=== PATIENT | female | born 1985 ===

== ENCOUNTER 2021-07-28 08:59 | Outpatient (REF) | payer OTHER, SELFPAY | END 2021-07-28 09:00 | disposition home or self-care (01) | LOC: HO.LAB 08:59 | PROVIDERS: Visit Provider Internal Medicine | DX: Z20.822 Contact with and (suspected) exposure to COVID-19 (principal) | CPT/HCPCS: C9803; U0003; U0005 ==

== ENCOUNTER 2023-02-20 14:20 | Emergency (ER) | payer MEDICAID, SELFPAY ==
[2023-02-20 15:22] VITALS: BP 128/60; PULSE 69; RESP 18; TEMP 36.9; O2SAT 100
--- NOTE | 2023-02-20 15:25 | ED.GENADULT ---
HPI - General Adult General Chief complaint: General Medical Stated complaint: Dizziness/Abd pain Time Seen by Provider: 02/20/23 17:42 Source: patient, RN notes reviewed and old records reviewed Mode of arrival: ambulatory Limitations: no limitations History of Present Illness HPI narrative: 37-year-old female presents for evaluation of lower abdominal pain, vomiting, dizziness Patient reports that for the last 2 days she has had increasing dizziness with for certain this work yesterday. She states that she was vomiting all last night and today He reports a history of but no other abdominal surgeries Patient denies any fevers, chills, cough, shortness of breath She has some lower abdominal discomfort which she rates as a 4/10 Denies any vaginal bleeding or discharge. The patient states that she is not sexually active Related Data Previous Rx's Medication Instructions Recorded ondansetron 4 mg disintegrating 4 mg PO Q8H PRN nausea and 02/20/23 tablet vomiting #20 tabs Allergies Allergy/AdvReac Type Severity Reaction Status Date / Time No Known Allergies Allergy Verified 02/20/23 15:22 Review of Systems Constitutional: Constitutional: Reports as per HPI, Denies chills, Denies fatigue, Denies fever(s) and Denies headache(s) ENT: Denies headache(s) Cardiovascular: Cardiovascular: Denies chest pain and Denies dyspnea Respiratory: Respiratory: Denies cough and Denies dyspnea Gastrointestinal: Gastrointestinal: Reports abdominal pain, Denies constipation, Reports nausea and Reports vomiting Genitourinary: Genitourinary: Denies dysuria Neurologic: Denies headache(s) and Denies focal weakness Endocrine: Endocrine: Denies fatigue PMFSH Social History Social History Advance Directives: No Advance Directives Information Provided: No Physical Exam ED Vital Signs: Vital Signs - 24 hr 02/20/23 15:22 02/20/23 18:00 Temperature 98.4 F 98.1 F Pulse Rate 69 59 Respiratory Rate 18 16 Blood Pressure 128/60 125/67 Pulse Oximetry 100 96 Oxygen Delivery Method Room Air Room Air BMI result Body Mass Index 30.0 Const General: healthy appearing, comfortable, no acute distress, alert and awake Nutritional Appearance: well nourished Orientation/consciousness: patient oriented x3 HENMT Head: Yes normocephalic and Yes atraumatic Throat: Yes posterior oropharynx normal Eyes Eyelids: Yes eyelids normal Conjunctivae: conjunctivae normal Sclerae: sclerae normal Corneas: corneas normal Pupils: Equal, round and reactive pupils present EOM: EOMs intact bilaterally Neck Neck: Yes full ROM Resp Effort & Inspection: normal respiratory effort, able to speak in complete sentences, no audible wheezes and not labored Auscultation: clear to auscultation bilaterally Cardio Rate: regular rate Rhythm: regular rhythm GI Inspection: No distended Palpation (GI): Soft to palpation, not firm, Tenderness to palpation present (GI) suprapubicly (Without guarding or rebound), no guarding and not rigid Auscultation: normoactive bowel sounds Skin General skin exam: no rashes or lesions noted and elasticity normal Neuro General: patient oriented x3 Cranial nerves: Yes Equal, round and reactive pupils present and Yes Bilaterally intact EOM present Cognition (Neuro): normal cognition Extrem Other: Moving all extremities well without any obvious deformities Course Course Course Narrative: RME: 37 yold female presents to the ED for lower abdominal pain, headache, dizziness, nuasea, and vomitting. pmh of molar . labs and UA ordered. SARS ordered Reevaluation(s) Reevaluation #1: PATIENT REPORTS FEELING MUCH BETTER, SYMPTOMS HAVE RESOLVED, SHE IS STABLE FOR DISCHARGE Time: 20:11 Medications Administered Discontinued Medications Generic Name Dose Route Start Last Admin Trade Name Freq PRN Reason Stop Dose Admin Sodium Chloride 1,000 mls @ 999 mls/hr 02/20/23 18:00 02/20/23 19:11 Ns IV 02/20/23 19:00 Infused .Q1H1M DARRELL Infusion Ketorolac Tromethamine 30 mg 02/20/23 17:48 02/20/23 18:15 Ketorolac Tromethamine 30 Mg/Ml Vial IVPUSH 02/20/23 17:49 30 mg ONCE ONE Administration Meclizine HCl 25 mg 02/20/23 17:48 02/20/23 18:15 Meclizine Hcl 25 Mg Tablet PO 02/20/23 17:49 25 mg ONCE ONE Administration Ondansetron HCl 4 mg 02/20/23 17:48 02/20/23 18:15 Ondansetron Hcl 4 Mg/2 Ml Vial IVPUSH 02/20/23 17:49 4 mg ONCE ONE Administration Medical Decision Making Medical Decision Making MDM Narrative: 37-year-old healthy female presents for evaluation of lower abdominal pain, vomiting. She also complains of dizziness. Will check orthostatics will treat with IV fluids, Toradol, meclizine and Zofran. Her CBCs reassuring, UA is negative and the patient is not . Her abdomen exam is reassuring, she has minimal tenderness without guarding. Will hold off on imaging at this time. Differential Diagnosis Gastritis UTI Viral syndrome Gastroenteritis Lab Data MDM Lab Attestation statement: I reviewed the patient's lab results. 02/20/23 17:29 02/20/23 17:30 Labs: Lab Results 02/20/23 02/20/23 02/20/23 Range/Units 15:37 17:29 17:29 WBC 5.7 (4.8-10.8) X10*3/uL RBC 4.83 (4.20-5.50) X10*6/uL Hgb 12.3 (12.0-16.0) g/dl Hct 39.4 (37.0-47.0) % MCV 81.6 (80.0-98.0) fL MCH 25.5 L (27.0-33.0) pg MCHC 31.2 (31.0-35.0) g/dl RDW 14.6 (11.0-16.0) % Plt Count 354 (160-400) X10*3/uL MPV 10.1 (9.4-12.3) fL Immature Gran % (Auto) 0.4 (0.0-0.4) % Neut % (Auto) 47.6 (45-73) % Lymph % (Auto) 36.1 (20-40) % [place] % (Auto) 11.8 H (2-11) % Eos % (Auto) 3.7 (0-4) % Baso % (Auto) 0.4 (0-2) % Lymph # (Auto) 2.1 (1.2-4.9) X10*3/uL [place] # (Auto) 0.7 (0.1-1.2) X10*3/uL Eos # (Auto) 0.2 (0.0-0.4) X10*3/uL Baso # (Auto) 0.0 (0.0-0.2) X10*3/uL Abs Immat Gran (auto) 0.02 (0.00-0.03) X10*3/uL Absolute Neuts (auto) 2.7 (2.0-8.3) x10*3/uL Absolute Nucleated RBC 0.000 (0.0-0.012) X10*3/uL Nucleated RBC % (auto) 0.0 (0.0-0.2) /100WBC PT 12.1 (10.0-13.1) SEC INR 1.1 (0.9-1.1) APTT 28.1 (26.0-36.4) SEC Sodium (135-145) mmol/L Potassium (3.3-5.1) mmol/L Chloride (96-108) mmol/L Carbon Dioxide (22-29) mmol/L Anion Gap (12-20) BUN (9-16) mg/dL Creatinine (0.5-1.4) mg/dL Estim Creat Clear Calc Estimated GFR Random Glucose (60-115) mg/dL Calcium (8.4-10.2) mg/dL Total Bilirubin (0.0-1.0) mg/dL AST (5-31) U/L ALT (0-31) U/L Alkaline Phosphatase (39-117) U/L Total Protein (6.5-8.0) g/dL Albumin (3.5-5.0) g/dL Lipase (8-78) U/L Beta HCG, Quant mIU/mL Urine Color Urine Appearance Urine pH (5.0-9.0) Ur Specific [place] (1.005-1.025) Urine Protein (Neg-Trace) mg/dL Urine Glucose (UA) (Negative) mg/dL Urine Ketones (Negative) mg/dL Urine Blood (Negative) Urine Nitrite (Negative) Ur Leukocyte Esterase (Negative) Urine Test (NEGATIVE) Influenza Type A (PCR) NEGATIVE (Negative) Influenza Type B (PCR) NEGATIVE (Negative) RSV RNA Qual (PCR) NEGATIVE (Negative) SARS-CoV-2 RNA (RT-PCR) NEGATIVE (Negative) 02/20/23 02/20/23 02/20/23 Range/Units 17:30 17:30 17:30 WBC (4.8-10.8) X10*3/uL RBC (4.20-5.50) X10*6/uL Hgb (12.0-16.0) g/dl Hct (37.0-47.0) % MCV (80.0-98.0) fL MCH (27.0-33.0) pg MCHC (31.0-35.0) g/dl RDW (11.0-16.0) % Plt Count (160-400) X10*3/uL MPV (9.4-12.3) fL Immature Gran % (Auto) (0.0-0.4) % Neut % (Auto) (45-73) % Lymph % (Auto) (20-40) % [place] % (Auto) (2-11) % Eos % (Auto) (0-4) % Baso % (Auto) (0-2) % Lymph # (Auto) (1.2-4.9) X10*3/uL [place] # (Auto) (0.1-1.2) X10*3/uL Eos # (Auto) (0.0-0.4) X10*3/uL Baso # (Auto) (0.0-0.2) X10*3/uL Abs Immat Gran (auto) (0.00-0.03) X10*3/uL Absolute Neuts (auto) (2.0-8.3) x10*3/uL Absolute Nucleated RBC (0.0-0.012) X10*3/uL Nucleated RBC % (auto) (0.0-0.2) /100WBC PT (10.0-13.1) SEC INR (0.9-1.1) APTT (26.0-36.4) SEC Sodium 138 (135-145) mmol/L Potassium 4.0 (3.3-5.1) mmol/L Chloride 104 (96-108) mmol/L Carbon Dioxide 26 (22-29) mmol/L Anion Gap 12 (12-20) BUN 12 (9-16) mg/dL Creatinine 0.79 (0.5-1.4) mg/dL Estim Creat Clear Calc 111.5 Estimated GFR > 60 Random Glucose 79 (60-115) mg/dL Calcium 9.9 (8.4-10.2) mg/dL Total Bilirubin 0.3 (0.0-1.0) mg/dL AST 17 (5-31) U/L ALT 14 (0-31) U/L Alkaline Phosphatase 90 (39-117) U/L Total Protein 7.8 (6.5-8.0) g/dL Albumin 4.4 (3.5-5.0) g/dL Lipase 49 (8-78) U/L Beta HCG, Quant < 2 mIU/mL Urine Color Yellow Urine Appearance Clear Urine pH 6.0 (5.0-9.0) Ur Specific [place] 1.010 (1.005-1.025) Urine Protein Negative (Neg-Trace) mg/dL Urine Glucose (UA) Negative (Negative) mg/dL Urine Ketones Negative (Negative) mg/dL Urine Blood Negative (Negative) Urine Nitrite Negative (Negative) Ur Leukocyte Esterase Negative (Negative) Urine Test NEGATIVE (NEGATIVE) Influenza Type A (PCR) (Negative) Influenza Type B (PCR) (Negative) RSV RNA Qual (PCR) (Negative) SARS-CoV-2 RNA (RT-PCR) (Negative) Discharge Plan Discharge Clinical Impression: Abdominal pain, Vomiting Patient Disposition: Home, Self-Care Instructions: Acute Abdominal Pain (ED) Additional Instructions: Your workup in the emergency department today was reassuring. Drink lots of fluids, small sips at a time Use Zofran for nausea/vomiting Prescriptions: New ondansetron 4 mg tablet,disintegrating 4 mg PO Q8H PRN (Reason: nausea and vomiting) Qty: 20 0RF Stand Alone Forms: Work/School Release
[2023-02-20 16:34] LABS: Influenza A PCR NEGATIVE (Negative); Influenza B PCR NEGATIVE (Negative); Resp Syncy Virus RNA Qual PCR NEGATIVE (Negative); SARS COV2 PCR INHOUSE NEGATIVE (Negative)
[2023-02-20 17:38] LABS: MANUAL DIFF FLAG NO
[2023-02-20 17:39] LABS: Basophils Percent Auto 0.4 % (0-2); Eosinophils Absolute Auto 0.2 X10*3/uL (0.0-0.4); Eosinophils Percent Auto 3.7 % (0-4); Hematocrit 39.4 % (37.0-47.0); Hemoglobin 12.3 g/dl (12.0-16.0); Imm Gran Abs Auto 0.02 X10*3/uL (0.00-0.03); Imm Gran Pct Auto 0.4 % (0.0-0.4); Lymphocytes Absolute Auto 2.1 X10*3/uL (1.2-4.9); Lymphocytes Percent Auto 36.1 % (20-40); Mean Corpuscular HGB Conc 31.2 g/dl (31.0-35.0); Mean Corpuscular Hemoglobin 25.5 pg (27.0-33.0); Mean Corpuscular Volume 81.6 fL (80.0-98.0); Mean Platelet Volume 10.1 fL (9.4-12.3); Monocytes Absolute Auto 0.7 X10*3/uL (0.1-1.2); Monocytes Percent Auto 11.8 % (2-11); Neutrophils Absolute Auto 2.7 x10*3/uL (2.0-8.3); Neutrophils Percent Auto 47.6 % (45-73); Platelet Count 354 X10*3/uL (160-400); Red Blood Count 4.83 X10*6/uL (4.20-5.50); Red Cell Distribution Width 14.6 % (11.0-16.0); White Blood Count 5.7 X10*3/uL (4.8-10.8)
[2023-02-20 17:40] LABS: Appearance Urine Clear; Color Urine Yellow; Glucose Urine UA Negative (Negative); Leukocyte Esterase Urine Negative (Negative); Nitrite Urine Negative (Negative); Urine Blood Negative (Negative); Urine Ketones Negative (Negative); Urine Protein Negative (Neg-Trace)
[2023-02-20 17:42] LABS: UPreg QC Valid YES; Urine Pregnancy NEGATIVE (NEGATIVE)
[2023-02-20 17:47] LABS: INTERNATIONAL NORM RATIO 1.1 (0.9-1.1); Prothrombin Time 12.1 SEC (10.0-13.1)
[2023-02-20 17:50] LABS: Partial Thromboplastin Time 28.1 SEC (26.0-36.4)
[2023-02-20 18:00] VITALS: BP 125/67; PULSE 59; RESP 16; TEMP 36.7; O2SAT 96
[2023-02-20 18:05] LABS: Alanine Aminotransferase 14 U/L (0-31); Albumin Level 4.4 g/dL (3.5-5.0); Alkaline Phosphatase 90 U/L (39-117); Anion Gap 12 (12-20); Aspartate Amino Transferase 17 U/L (5-31); Bilirubin Total 0.3 mg/dL (0.0-1.0); Blood Urea Nitrogen 12 mg/dL (9-16); Calcium 9.9 mg/dL (8.4-10.2); Carbon Dioxide 26 mmol/L (22-29); Chloride 104 mmol/L (96-108); Creatinine Clr Calc Pharmacy 111.5; Estimated Glomerular Filt Rate > 60; Glucose Random 79 mg/dL (60-115); Lipase 49 U/L (8-78); Sodium 138 mmol/L (135-145); Total Protein 7.8 g/dL (6.5-8.0)
[2023-02-20] MEDS: 0.9 % Sodium Chloride 1,000 ML 999 ML IV (18:10)
[2023-02-20] MEDS: Meclizine HCl 25 MG TABLET PO (18:15)
[2023-02-20] MEDS: ondansetron HCL 4 MG/2 ML VIAL IVPUSH (18:15)
[2023-02-20] MEDS: Ketorolac Tromethamine 30 MG/ML VIAL IVPUSH (18:15)
[2023-02-20 18:16] LABS: HCG Quantitative < 2 mIU/mL
--- NOTE | 2023-02-20 18:24 | PC.NURSE ---
20g iv inserted RAC, fluids and meds given per order.
--- NOTE | 2023-02-20 19:00 | PC.NURSE ---
Report received from Tong about pts present condition, the reason pt is in the ED, what the care plan is in the ED as well as treatment plans, lab results and procedures preformed. Pt at the moment denies any pain, SOB, CP, feeling of faint, numbness/tingling to extremities or generalize weakness. pt continues on cardiac monitoring, V/s equipment and pulse ox.
== END 2023-02-20 22:32 | disposition home or self-care (01) ==
PROVIDERS: Physician Assistant; Emergency Provider Emergency Medicine; PCP Nurse Practitioner
DX: R42 Dizziness and giddiness (principal); R10.2 Pelvic and perineal pain; Z20.822 Contact with and (suspected) exposure to COVID-19; Z20.828 Contact with and (suspected) exposure to other viral communicable diseases; Z79.899 Other long term (current) drug therapy
CPT/HCPCS: 0241U; 80053; 81003; 81025; 83690; 84702; 85025; 85610; 85730; 96361; 96374; 96375; 99284; J1885; J2405

== ENCOUNTER 2024-04-02 17:55 | Inpatient (IN) | payer MEDICAID, OTHER, SELFPAY ==
[2024-04-02 17:58] VITALS: BP 144/77; PULSE 90; O2SAT 97
[2024-04-02 18:12] VITALS: BMI 27.9
[2024-04-02 18:23] VITALS: BP 110/70; PULSE 87; RESP 12; O2SAT 97
--- NOTE | 2024-04-02 19:19 | PC.NURSE ---
patient soon after arrival to pod asking questions about access to phone, appears in no distress awaiting orders for labs.
--- NOTE | 2024-04-02 19:52 | ED_ITS ---
HPI - Psych General Chief Complaint: Psychiatric Symptoms Stated Complaint: CRISIS Time Seen by Provider: 04/02/24 18:23 Source: patient and EMS Mode of arrival: EMS Limitations: no limitations History of Present Illness HPI Narrative: Patient is a 38-year-old female who presents to the emergency department via EMS. Per EMS account she has been noncompliant with her medications, it was called to have patient transported to the ED. patient offers no physical complaints, she denies any suicidal or homicidal ideations. When asked whether she has been taking her medications she does not answer this question directly. Patient was placed on a section 12 by JESSICA who saw her in the community. [place] [facility] [place]. She made statements to her 14-year-old child that she was going to jump out of a window to kill herself. [facility] spoke with our care team direct way, they did admit that patient would likely climb suicidal ideations or decline the aforementioned SI statement, and again she denies suicidal ideations at this time. Related Data Home Medications ?Medication ?Instructions ?Recorded ?Confirmed No Known Home Meds 04/02/24 04/02/24 Allergies Allergy/AdvReac Type Severity Reaction Status Date / Time No Known Allergies Allergy Verified 04/02/24 18:13 Review of Systems 2 Review of Systems: Yes all other systems are reviewed and are negative PMFSH Past Medical History Attestation statement: The following information was validated with the patient. Source: old records reviewed Social History Social History Advance Directives: No Advance Directives Information Provided: No Do you have a plan to hurt others: No Plan Physical Exam 2 Vital Signs: Vital Signs: Last Vital Signs Temp 97.8 F 04/02/24 23:20 Pulse 68 04/02/24 23:20 Resp 16 04/02/24 23:20 BP 117/73 04/02/24 23:20 Pulse Ox 99 04/02/24 23:20 O2 Del Method Room Air 04/02/24 23:20 BMI result Body Mass Index 27.9 Appearance: Alert.?Oriented to person, place and time. No acute distress.?Normal affect. Eyes: Pupils equal, round and reactive to light.? ENT: Pharynx normal.?? Neck: Normal inspection.? Neck supple.?? CVS: Heart sounds normal. Normal heart rate and rhythm.? Pulses normal.?? Respiratory: No respiratory distress.? Lung sounds clear to auscultation bilaterally?? Abdomen: Soft and non-tender. Normoactive bowel sounds. ? Skin: Skin warm and dry.? Normal skin color.? Extremities: No lower extremity edema.? Neuro: Moves all extremities spontaneously. Sensation intact bilaterally. CN II- XII intact. No focal neuro deficits. Ambulates with normal steady gait. Medications Administered Discontinued Medications Generic Name Dose Route Start Last Admin Trade Name Cristobalq PRN Reason Stop Dose Admin Diphenhydramine HCl 50 mg 04/02/24 23:11 04/03/24 00:24 Diphenhydramine Hcl 25 Mg Capsule PO 04/02/24 23:12 50 mg ONCE ONE Administration Medical Decision Making Medical Decision Making [facility] Narrative: Patient is a 38-year-old female who presents emergency department via EMS on a section 12 for inpatient bed search from the community after being evaluated by [facility] making suicidal statements. Currently she denies suicidal ideations. She offers no physical complaints and his physical examination is benign. Differential Diagnosis Differential Diagnoses: The differential diagnosis associated with the presentation includes (See narrative below) Admission/Observation Consideration of admission/observation: Escalation of care including admission/observation considered Patient is being observed in the Emergency Department for suicidal ideations. Observation time was started at 22:09 on 04/02/2024..?The patient is currently stable and non-toxic appearing. Observation is being initiated in the Emergency Department to allow time to help differentiate if the patient's depression and anxiety is due to Substance Induced Mood Disorder and Anxiety versus Major Depressive Disorder, Bipolar Clarice, Bipolar Depression, and Schizophrenia. The patient will receive frequent psychiatric assessments from the provider as well as from nursing staff. The patient will also be monitored for the need of PRN agitation medications such as Haldol, Ativan, and Benadryl. Consult Healthcare Provider Management of the patient was discussed with: Behavioral Health Provider (See narrative above) Lab Data [facility] Lab Attestation statement: I reviewed the patient's lab results. CBC is without leukocytosis anemia or thrombocytopenia. Chemistries overall unremarkable. Urinalysis with pyuria, squamous epithelial cells present and 4+ urine bacteria, denies genitourinary symptoms, suspect secondary area to urogenital contamination. HCG negative. Toxicology negative. 04/02/24 22:01 04/02/24 22:01 Labs: Lab Results 04/02/24 Range/Units 22:01 WBC 6.1 (4.8-10.8) X10*3/uL RBC 4.73 (4.20-5.50) X10*6/uL Hgb 12.9 (12.0-16.0) g/dl Hct 40.3 (37.0-47.0) % MCV 85.2 (80.0-98.0) fL MCH 27.3 (27.0-33.0) pg MCHC 32.0 (31.0-35.0) g/dl RDW 14.1 (11.0-16.0) % Plt Count 315 (160-400) X10*3/uL MPV 9.7 (9.4-12.3) fL Immature Gran % (Auto) 0.2 (0.0-0.4) % Neut % (Auto) 58.4 (45-73) % Lymph % (Auto) 29.0 (20-40) % [place] % (Auto) 8.6 (2-11) % Eos % (Auto) 3.3 (0-4) % Baso % (Auto) 0.5 (0-2) % Lymph # (Auto) 1.8 (1.2-4.9) X10*3/uL [place] # (Auto) 0.5 (0.1-1.2) X10*3/uL Eos # (Auto) 0.2 (0.0-0.4) X10*3/uL Baso # (Auto) 0.0 (0.0-0.2) X10*3/uL Abs Immat Gran (auto) 0.01 (0.00-0.03) X10*3/uL Absolute Neuts (auto) 3.6 (2.0-8.3) x10*3/uL Absolute Nucleated RBC 0.000 (0.0-0.012) X10*3/uL Nucleated RBC % (auto) 0.0 (0.0-0.2) /100WBC Sodium 139 (135-145) mmol/L Potassium 4.0 (3.3-5.1) mmol/L Chloride 109 H (96-108) mmol/L Carbon Dioxide 21 L (22-29) mmol/L Anion Gap 13 (12-20) BUN 9 (9-16) mg/dL Creatinine 0.78 (0.5-1.4) mg/dL Estim Creat Clear Calc 108.0 Estimated GFR > 60 Random Glucose 90 (60-115) mg/dL Calcium 10.2 (8.4-10.2) mg/dL Total Bilirubin 0.2 (0.0-1.0) mg/dL AST 13 (5-31) U/L ALT 12 (0-31) U/L Alkaline Phosphatase 85 (39-117) U/L Total Protein 7.5 (6.5-8.0) g/dL Albumin 4.4 (3.5-5.0) g/dL Urine Color Yellow Urine Appearance Cloudy Urine pH 7.0 (5.0-9.0) Ur Specific [place] 1.020 (1.005-1.025) Urine Protein Trace (Neg-Trace) mg/dL Urine Glucose (UA) Negative (Negative) mg/dL Urine Ketones Negative (Negative) mg/dL Urine Blood Negative (Negative) Urine Nitrite Negative (Negative) Ur Leukocyte Esterase Moderate (2+) H (Negative) Urine RBC 0-2 (0-2) /HPF Urine WBC 11-20 H (0-5) /HPF Ur Squamous Epith Cells >20 (0-2) /HPF Urine Bacteria 4+ (None Seen) Hyaline Casts 6-10 (0-2) /LPF Urine Test NEGATIVE (NEGATIVE) Urine Opiates Screen Not Detected (Not Detect) Ur Buprenorphine Scrn Not Detected (Not Detect) ng/mL Ur Oxycodone Screen Not Detected (Not Detect) ng/mL Urine Methadone Screen Not Detected (Not Detect) ng/mL Urine Fentanyl Screen Not Detected (Not Detect) Ur Barbiturates Screen Not Detected (Not Detect) Ur Phencyclidine Scrn Not Detected (Not Detect) Ur Amphetamines Screen Not Detected (Not Detect) U Benzodiazepines Scrn Not Detected (Not Detect) Urine Cocaine Screen Not Detected (Not Detect) U Marijuana (THC) Screen Not Detected (Not Detect) Ethyl Alcohol < 10 mg/dL Independent Historian Clinical information obtained from an independent historian. History obtained from or confirmed by: EMS External Record Review External record reviewed: Outpatient record Discharge Plan Discharge Clinical Impression: Suicidal ideation Patient Disposition: Still a Patient Prescriptions: No Action No Known Home Meds Interventions: [place]-Suicide Risk Severity Scale Last Done: 04/02/24 22:09 Print Language: Telugu
[2024-04-02 22:43] LABS: MANUAL DIFF FLAG NO
[2024-04-02 22:44] LABS: Basophils Percent Auto 0.5 % (0-2); Eosinophils Absolute Auto 0.2 X10*3/uL (0.0-0.4); Eosinophils Percent Auto 3.3 % (0-4); Hematocrit 40.3 % (37.0-47.0); Hemoglobin 12.9 g/dl (12.0-16.0); Imm Gran Abs Auto 0.01 X10*3/uL (0.00-0.03); Imm Gran Pct Auto 0.2 % (0.0-0.4); Lymphocytes Absolute Auto 1.8 X10*3/uL (1.2-4.9); Mean Corpuscular Hemoglobin 27.3 pg (27.0-33.0); Mean Corpuscular Volume 85.2 fL (80.0-98.0); Mean Platelet Volume 9.7 fL (9.4-12.3); Monocytes Absolute Auto 0.5 X10*3/uL (0.1-1.2); Monocytes Percent Auto 8.6 % (2-11); Neutrophils Absolute Auto 3.6 x10*3/uL (2.0-8.3); Neutrophils Percent Auto 58.4 % (45-73); Platelet Count 315 X10*3/uL (160-400); Red Blood Count 4.73 X10*6/uL (4.20-5.50); Red Cell Distribution Width 14.1 % (11.0-16.0); White Blood Count 6.1 X10*3/uL (4.8-10.8)
[2024-04-02 22:47] LABS: Appearance Urine Cloudy; Color Urine Yellow; Glucose Urine UA Negative (Negative); Leukocyte Esterase Urine Moderate (2+) (Negative); Nitrite Urine Negative (Negative); UMIC TRIGGER UACC YES; Urine Blood Negative (Negative); Urine Ketones Negative (Negative); Urine Protein Trace mg/dL (Neg-Trace)
[2024-04-02 22:48] LABS: UPreg QC Valid YES; Urine Pregnancy NEGATIVE (NEGATIVE)
[2024-04-02 22:56] LABS: Amphetamine Screen Urine Not Detected (Not Detect); Bacteria Urine 4+ (None Seen); Barbiturates, Urine Not Detected (Not Detect); Benzodiazepines Screen Urine Not Detected (Not Detect); Buprenorphine Scr Not Detected (Not Detect); Cannabinoid Screen Urine Not Detected (Not Detect); Cocaine Screen Urine Not Detected (Not Detect); Fentanyl, urine Not Detected (Not Detect); Methadone Screen, Urine Not Detected (Not Detect); Opiate Screen Urine Not Detected (Not Detect); Oxycodone Screen Urine Not Detected (Not Detect); Phencyclidine Screen Urine Not Detected (Not Detect); RBC Urine 0-2 /HPF (0-2); Squamous Epithelial Cell Urine >20 /HPF (0-2); UACC Culture Trigger YES
[2024-04-02 23:04] LABS: Alanine Aminotransferase 12 U/L (0-31); Albumin Level 4.4 g/dL (3.5-5.0); Alkaline Phosphatase 85 U/L (39-117); Anion Gap 13 (12-20); Aspartate Amino Transferase 13 U/L (5-31); Bilirubin Total 0.2 mg/dL (0.0-1.0); Blood Urea Nitrogen 9 mg/dL (9-16); Calcium 10.2 mg/dL (8.4-10.2); Carbon Dioxide 21 mmol/L (22-29); Chloride 109 mmol/L (96-108); Estimated Glomerular Filt Rate > 60; Ethanol < 10 mg/dL; Glucose Random 90 mg/dL (60-115); Sodium 139 mmol/L (135-145); Total Protein 7.5 g/dL (6.5-8.0)
[2024-04-02 23:20] VITALS: BP 117/73; PULSE 68; RESP 16; TEMP 36.6; O2SAT 99
[2024-04-03] MEDS: diphenhydrAMINE HCL 25 MG CAPSULE 50 MG PO (00:24)
--- NOTE | 2024-04-03 02:16 | PC.NURSE ---
patient comes out about hourly and asks for phone and or why shes here.
[2024-04-03] MEDS: Acetaminophen 325 MG TABLET 650 MG PO ×2 (04:06→15:46)
[2024-04-03 10:51] VITALS: BP 116/60; PULSE 83; RESP 18; TEMP 36.6; O2SAT 100
[2024-04-03 14:53] VITALS: BP 135/71; PULSE 109; RESP 18; TEMP 36.6; O2SAT 99; BMI 28.0
--- NOTE | 2024-04-03 16:04 | PC.ADMIT ---
Samir arrived to the unit at 1400 from [facility], met with Dr. Tovar currently on a 12B. Upon approach stated I shouldn't be here, skin check done by senior copywriter and female RN, has a scar on left breast, skin appears intact. During skin check appeared paranoid stated Why do you need to see my skin, my skin has nothing to do with me being here. Staff support offered she continued to state My skin is part of me why the focus on my skin, is my skin part of my treatment. When asked what brought her in she stated I told my daughter I was going to jump off the fourth floor and she called the ambulance on me, she reports it was not Serious, it was just something I said. She reports feeling Normal I don't know why I'm here, she reports endorsing A little, anxiety and depression, denied auditory/visual hallucinations. When asked if she had any thoughts of wanting to hurt self or others stated No. She reports her sleep has been Irregular, I don't really fall asleep, reports she doesn't remember the last time she slept for hours. Per assessment Samir has been residing at a [facility] with her two juvenile children for over four years, [facility] was called secondary to her becoming emotionally dysregulated and making suicidal threats to jump off the fourth floor window. She also reportedly been presenting with increased anxiety, paranoid delusions that there are cameras being hidden all over her apartment and she is being watched, as well as poor sleep. She currently doesn't have any providers, she is currently reporting left ear pain, she is on 15 minute checks.
--- NOTE | 2024-04-03 16:32 | PM.EVENT ---
Event Note Date of Service: 04/03/24 Event Note: 38-year-old female admitted to adult Psychiatry with consult placed to hospitalist service for evaluation of right ear pain ongoing for 2 days. She describes a sharp pain inside the ear without any hearing loss. There is no purulent drainage from the ear. No fevers or chills. No st, congestion, rhinorrhea, cough. On exam, tenderness with manipulation of the pinna. Canal is erythematous without edema or purulent drainage. Tympanic membrane is pearly delacruz and intact without any bulging, erythema, or air-fluid levels. Time Spent With Patient Time: Total time managing care of this patient today ____ minutes.
--- NOTE | 2024-04-03 17:15 | PC.NURSE ---
[facility] contacted per Patients request.
[2024-04-03] MEDS: Ibuprofen 800 MG TABLET PO (19:20)
[2024-04-03] MEDS: NeoMYCIN/Polymyxin/HC Otic Sol BOTTLE 4 DROP EAR-RIGHT (20:49)
[2024-04-04 08:00] VITALS: BP 116/58; PULSE 98; TEMP 36.6; O2SAT 100
[2024-04-04 08:35] LABS: Alanine Aminotransferase 9 U/L (0-31); Albumin Level 3.9 g/dL (3.5-5.0); Alkaline Phosphatase 69 U/L (39-117); Anion Gap 10 (12-20); Aspartate Amino Transferase 10 U/L (5-31); Bilirubin Total 0.6 mg/dL (0.0-1.0); Blood Urea Nitrogen 6 mg/dL (9-16); Calcium 9.1 mg/dL (8.4-10.2); Carbon Dioxide 24 mmol/L (22-29); Chloride 109 mmol/L (96-108); Cholesterol 174 mg/dL (<200); Creatinine Clr Calc Pharmacy 117.1; Estimated Glomerular Filt Rate > 60; Glucose Fasting 86 mg/dL (60-99); HDL Cholesterol 36 mg/dL (>40); LDL Cholesterol Calculated 123 mg/dL (<100); Magnesium 2.2 mg/dL (1.6-2.6); Sodium 139 mmol/L (135-145); Total Protein 6.6 g/dL (6.5-8.0); Triglycerides 76 mg/dL (<150)
[2024-04-04 08:48] LABS: Free T4 (Free Thyroxine) 0.92 ng/dL (0.71-1.85)
[2024-04-04] MEDS: NeoMYCIN/Polymyxin/HC Otic Sol BOTTLE 4 DROP EAR-RIGHT ×3 (10:15→21:15)
[2024-04-04 12:28] LABS: Estimated Average Glucose 94 mg/dL; Hemoglobin A1c % 4.9 % (<6.0)
--- NOTE | 2024-04-04 12:59 | P.HPPS_ITS ---
HPI Date of Service: 04/04/24 Chief Complaint: psychosis Sources of Information: patient interviewed (pt seen 04/04/24 1130am), chart reviewed and crisis/core team assessment reviewed HPI Subjective Notes: Sue Warning and Section 12B Healthcare Proxy: No Guardianship: No Medical Problems Affecting Mental Status: No Narrative: 38 yo female, to ER with police and [facility] crisis co-response clinician. Crisis reports pt made suicidal threats to her children to jump from the fourth floor window. They report paranoia, delusional content, emotional lability, poor sleep and no treatment providers or plan in place. [place] with [place] [facility] [place] (pt does sepak Marshallese), [place] DELU[place], Germaine Hernandez APRN culinary intern. Pt utilized the meeting for questions. She asked for an explanation of why she is hospitalized. Extensive review of her crisis eval was completed. Pt verbalized throughout that team was not clear with her and she wanted to discharge immediately. Reviewed specifics for admission 1. Suicidal threats to jump from the fourth floor window verbalized to her son, Luc, as reported to crisis by Jeb and adult sister Zora as Cabreravu called her to report his concern for his mother and for his safety with mothers current state of distress. 2. Validation of concern for pt's well being and agreement she was in need of care by children's aunt, Chance, who will care for the two minor children during pt's hospitalization. 3. Crisis observing symptoms of paranoia, delusions, poor sleep, reported hx of physical aggression, emotional lability and response to internal stimuli. Pt reports not understanding this rationale and believes her rights are being violated. She will be in contact with her legal team for release. Discussed section 12B specifics as were discussed upon admission. Past Psychiatric History: IP: Crisis reports history. Recent evaluations 03/21/24, 03/05/24 OP: No current treatment relationship Medications: History, however no current regime, no interest in initiating regime as she finds no need to do so Medical Evaluation Reviewed: Yes [facility] Medical History (Updated 04/04/24 @ 15:04 by Alena Zee APRN) Unspecified psychosis Narrative: Denies Narrative: Denies Family History: Pt would not discuss history. Per crisis report possibly schizophrenia Social History: Per crisis report.. Three children, one adult daughter 1 juvenille son and 1 juvenille daughter. She is the primary day care director. Substance History: Denies Trauma History: affirms Diagnostics Vital Signs (24Hr): Vital Signs - 24 hr 04/03/24 14:53 04/04/24 08:00 Temperature 97.8 F 97.9 F Pulse Rate 109 H 98 Respiratory Rate 18 Blood Pressure 135/71 116/58 L Pulse Oximetry 99 100 Oxygen Delivery Method Room Air Room Air BMI result Body Mass Index 28.0 Labs 04/02/24 22:01 04/04/24 07:53 Labs: Laboratory Results - last 48 hr 04/02/24 04/04/24 22:01 07:53 WBC 6.1 RBC 4.73 Hgb 12.9 Hct 40.3 MCV 85.2 MCH 27.3 MCHC 32.0 RDW 14.1 Plt Count 315 MPV 9.7 Immature Gran % (Auto) 0.2 Neut % (Auto) 58.4 Lymph % (Auto) 29.0 [place] % (Auto) 8.6 Eos % (Auto) 3.3 Baso % (Auto) 0.5 Lymph # (Auto) 1.8 [place] # (Auto) 0.5 Eos # (Auto) 0.2 Baso # (Auto) 0.0 Abs Immat Gran (auto) 0.01 Absolute Neuts (auto) 3.6 Absolute Nucleated RBC 0.000 Nucleated RBC % (auto) 0.0 Sodium 139 139 Potassium 4.0 4.0 Chloride 109 H 109 H Carbon Dioxide 21 L 24 Anion Gap 13 10 L BUN 9 6 L Creatinine 0.78 0.72 Estim Creat Clear Calc 108.0 117.1 Estimated GFR > 60 > 60 Random Glucose 90 Fasting Glucose 86 Estimat Average Glucose 94 Hemoglobin A1c % 4.9 Calcium 10.2 9.1 D Magnesium 2.2 Total Bilirubin 0.2 0.6 AST 13 10 ALT 12 9 Alkaline Phosphatase 85 69 Total Protein 7.5 6.6 Albumin 4.4 3.9 Triglycerides 76 Cholesterol 174 LDL Cholesterol, Calc 123 H HDL Cholesterol 36 L TSH 1.80 Free T4 0.92 Urine Color Yellow Urine Appearance Cloudy Urine pH 7.0 Ur Specific [place] 1.020 Urine Protein Trace Urine Glucose (UA) Negative Urine Ketones Negative Urine Blood Negative Urine Nitrite Negative Ur Leukocyte Esterase Moderate (2+) H Urine RBC 0-2 Urine WBC 11-20 H Ur Squamous Epith Cells >20 Urine Bacteria 4+ Hyaline Casts 6-10 Urine Test NEGATIVE Urine Opiates Screen Not Detected Ur Buprenorphine Scrn Not Detected Ur Oxycodone Screen Not Detected Urine Methadone Screen Not Detected Urine Fentanyl Screen Not Detected Ur Barbiturates Screen Not Detected Ur Phencyclidine Scrn Not Detected Ur Amphetamines Screen Not Detected U Benzodiazepines Scrn Not Detected Urine Cocaine Screen Not Detected U Marijuana (THC) Screen Not Detected Ethyl Alcohol < 10 Meds/Allergies Meds Home Medications ?Medication ?Instructions ?Recorded ?Confirmed ?Type No Known Home Meds 04/02/24 04/02/24 History Allergies Allergies Allergy/AdvReac Type Severity Reaction Status Date / Time No Known Allergies Allergy Verified 04/02/24 18:13 Mental Status Exam Mental Status Exam Patient Appearance: Fatigued and Appropriate Patient Orientation: Person and Place Level of Consciousness: Restless and Alert Patient Behavior: Guarded, Talkative, Suspicious, Restless, Anxious, Fearful, Resistive to Care, Avoidant, Distractible, Isolative and Good Eye Contact Mood Description: Suspicious, Withdrawn, Depressed, Fearful, Hostile, Anxious, Labile, Angry, Nervous and Apprehensive Affect Description: Labile Patient Cognition Impaired: No Ability to Follow Directions: Fair Speech Pattern: Perseverating, Spontaneous Speech and Soft-Spoken Memory Description: Episodic Impaired Delusions: Being Controlled, Paranoid Ideation and Present Perceptual Disturbances: Depersonalization and Derealization Thought Process: Illogical, Distracted and Rumination Thought Content: positive for [place], positive for Circumstantial, positive for Perseveration, positive for Preoccupation, positive for Evasive, positive for Suicidal Ideation (denies) and positive for Homicidal Ideation (denies) Depressive Symptoms: Increased Anxiety, Insomnia, Increased Irritability, Difficulty Sleeping, Hopelessness, Unhappiness, Thoughts of /Suicide (denies) and Difficulty Concentrating Judgement: Poor Assessment & Plan Assessment & Plan (1) Unspecified psychosis: Status: Acute Code(s): F29 - Unspecified psychosis not due to a substance or known physiological condition (2) Suicidal ideation: Status: Acute Code(s): R45.851 - Suicidal ideations Plan 38 yo female, to ER with police, co-response after informing children she was planning to jump from a fourth story window to suicide. Pt's juvenile son talked with his adult sister to express his concern and crisis was involved. Per crisis, pt exhibiting sx of paranoia, delusions, lability, poor sleep as well. Children report concerning behaviors in community to crisis as well. Pt admitted on a Section XIIB which will on 04/06. She demands discharge and will not accept explanation of rationale for concern or admission. Plan: Admit, Section 12B to 04/06/24, 15 minute checks Pt declines medications-believes she is not in need of medication. Mandatory 51A to be filed [phone] Paperwork faxed to [phone] 348pm Pt has declined all collateral contact resources. Educate, answer questions as pt requests. Patient educated on: therapeutic strategies Reason for continued inpatient stay Substantial Risk for: rapid decompensation Statement Statement: I have reviewed the history and physical and performed a pertinent examination on my patient. No changes have occurred unless specified. If the History and Physical was not performed prior to admission, the Hospitalist's service will be consulted for completing the admission physical. Time Spent With Patient Time: Total time managing care of this patient today ____ minutes.
[2024-04-04 14:32] LABS: Folate 8.4 ng/mL (> or = 4.0); Vitamin B12 368 pg/mL (200-900)
[2024-04-05] MEDS: NeoMYCIN/Polymyxin/HC Otic Sol BOTTLE 4 DROP EAR-RIGHT ×2 (08:45→14:23)
[2024-04-05] MEDS: Ibuprofen 600 MG TABLET PO (08:48)
--- NOTE | 2024-04-05 15:17 | HO.PSYCHPN ---
Subjective Subjective Date of Service: 04/05/24 Reason For Visit: psychosis Subjective Notes: Section 12B Healthcare Proxy: No Guardianship: No Medical Problems Affecting Mental Status: No Interim History: [place] [facility] [place]. Pt focused on rationale for admission, asked for explanation of Section 12B. Expressed anger, has spoken with [employer], human rights officer. Declines all meds and treatment. Did allow hospitalist to examine for an ear ache. Denies SI, HI, sx of psychosis Medication Compliance: No Side effects from medications: No Attending Groups: No Review of Systems Acute medical concerns: No Medical Review of Systems: unchanged Review of Systems Review of Systems Declines assessment Mental Status Exam Mental Status Exam Patient Appearance: Appropriate Patient Orientation: Person, Place, Time and Situation Level of Consciousness: Restless and Alert Patient Behavior: Guarded, Talkative, Suspicious, Restless, Anxious, Fearful, Resistive to Care, Avoidant, Distractible, Isolative and Good Eye Contact Mood Description: Suspicious, Withdrawn, Depressed, Fearful, Hostile, Anxious, Labile, Angry, Nervous and Apprehensive Affect Description: Labile Patient Cognition Impaired: No Ability to Follow Directions: Fair Speech Pattern: Perseverating, Spontaneous Speech and Soft-Spoken Memory Description: Episodic Impaired Delusions: Being Controlled Perceptual Disturbances: Depersonalization and Derealization Thought Process: Illogical, Distracted and Rumination Thought Content: positive for [place], positive for Circumstantial, positive for Perseveration, positive for Preoccupation, positive for Evasive, positive for Suicidal Ideation (denies) and positive for Homicidal Ideation (denies) Depressive Symptoms: Increased Anxiety, Increased Irritability, Difficulty Sleeping, Unhappiness and Thoughts of /Suicide (denies) Judgement: Fair Diagnostics Vital Signs (24Hr): BMI result Body Mass Index 28.0 Labs 04/02/24 22:01 04/04/24 07:53 Labs: Laboratory Results - last 48 hr 04/04/24 07:53 Sodium 139 Potassium 4.0 Chloride 109 H Carbon Dioxide 24 Anion Gap 10 L BUN 6 L Creatinine 0.72 Estim Creat Clear Calc 117.1 Estimated GFR > 60 Fasting Glucose 86 Estimat Average Glucose 94 Hemoglobin A1c % 4.9 Calcium 9.1 D Magnesium 2.2 Total Bilirubin 0.6 AST 10 ALT 9 Alkaline Phosphatase 69 Total Protein 6.6 Albumin 3.9 Triglycerides 76 Cholesterol 174 LDL Cholesterol, Calc 123 H HDL Cholesterol 36 L Vitamin B12 368 Folate 8.4 TSH 1.80 Free T4 0.92 Medications Medications Current Medications Acetaminophen (Acetaminophen 325 Mg Tablet) 650 mg PO Q6H PRN PRN Reason: Headache/Pain Mild Scale (1-3) Al Hydroxide/Mg Hydroxide (Magnesium Hydrox/Alum Hydrox 30 Ml Oral.Susp) 30 ml PO Q6H PRN PRN Reason: Heartburn/Nausea Hydroxyzine HCl (Hydroxyzine Hcl 25 Mg Tablet) 25 mg PO Q6H PRN PRN Reason: Anxiety Ibuprofen (Ibuprofen 600 Mg Tablet) 600 mg PO Q6H PRN PRN Reason: ear pain Last Admin: 04/05/24 08:48 Dose: 600 mg Ibuprofen (Ibuprofen 600 Mg Tablet) 600 mg PO Q6H PRN PRN Reason: Pain, Moderate(Pain Scale 4-6) Magnesium Hydroxide (Milk Of Magnesia 30 Ml Oral.Susp) 30 ml PO DAILY PRN PRN Reason: Constipation Neomycin/Polymyxin/Hydrocortisone (Neomycin/Polymyxin/Hc Otic Leslye Bottle) 4 drop EAR-RIGHT TID DARRELL Stop: 04/10/24 17:34 Last Admin: 04/05/24 14:23 Dose: 4 drop Nicotine (Nicotine 21 Mg Patch.Td24) 21 mg TRANSDERMA DAILY PRN PRN Reason: nicotine withdrawal Olanzapine (Olanzapine 5 Mg Tablet) 5 mg PO TID PRN PRN Reason: psychosis,agitation Trazodone HCl (Trazodone Hcl 50 Mg Tablet) 50 mg PO BEDTIME MRX1 PRN PRN Reason: Insomnia Allergies Allergies Allergy/AdvReac Type Severity Reaction Status Date / Time No Known Allergies Allergy Verified 04/02/24 18:13 Assessment & Plan Assessment & Plan (1) Unspecified psychosis: Status: Acute Code(s): F29 - Unspecified psychosis not due to a substance or known physiological condition (2) Suicidal ideation: Status: Acute Code(s): R45.851 - Suicidal ideations Plan 38 yo female, to ER with police, co-response after informing children she was planning to jump from a fourth story window to suicide. Pt's juvenile son talked with his adult sister to express his concern and crisis was involved. Per crisis, pt exhibiting sx of paranoia, delusions, lability, poor sleep as well. Children report concerning behaviors in community to crisis as well. Pt admitted on a Section XIIB which will on 04/06. She demands discharge and will not accept explanation of rationale for concern or admission. Plan: Admit, Section 12B to 04/06/24, 15 minute checks Pt declines medications-believes she is not in need of medication. Mandatory 51A to be filed [phone] Paperwork faxed to [phone] 348pm Pt has declined all collateral contact resources. Educate, answer questions as pt requests. 04/05: Declines treatment at this time Reason for continued inpatient stay Substantial Risk for: rapid decompensation Time Spent With Patient Time: Total time managing care of this patient today ____ minutes.
[2024-04-05 20:00] VITALS: BP 118/63; PULSE 77; RESP 16; TEMP 36.7; O2SAT 96
[2024-04-06] MEDS: NeoMYCIN/Polymyxin/HC Otic Sol BOTTLE 4 DROP EAR-RIGHT (07:20)
[2024-04-06 08:58] VITALS: BP 122/58; PULSE 81; TEMP 36.3; O2SAT 97
--- NOTE | 2024-04-06 17:37 | PM.PSYDC ---
DS: Providers Provider Date of Service: 04/06/24 Date of admission: 04/03/24 12:04 Date of discharge: 04/06/24 Primary care physician: Edu Physician Admitting clinician: Alena Zee Attending physician on admission: Remington Javed Consults: 04/03/24 15:15 Consult to Hospitalist Routine Comment: Consulting Provider: Hospitalist Reason For Exam: left ear pain 2 days Attending physician on discharge: Remington Javed Discharging clinician: Alena Zee DS: Diagnosis Discharge Diagnosis (1) Unspecified psychosis: Status: Acute (2) Suicidal ideation: Status: Resolved DS: Medications Discharge Medications Home Medications: Home Medications ?Medication ?Instructions ?Recorded ?Confirmed No Known Home Meds 04/02/24 04/02/24 Mental Status Exam Mental Status Exam Patient Appearance: Appropriate Patient Orientation: Person, Place, Time and Situation Level of Consciousness: Restless and Alert Patient Behavior: Guarded, Talkative, Suspicious, Restless, Resistive to Care, Avoidant, Distractible, Isolative and Good Eye Contact Mood Description: Suspicious, Withdrawn, Depressed, Hostile, Labile, Angry and Apprehensive Affect Description: Labile Patient Cognition Impaired: No Ability to Follow Directions: Fair Speech Pattern: Perseverating, Spontaneous Speech and Soft-Spoken Memory Description: Episodic Impaired Hallucinations: None Delusions: Being Controlled (by Section XIIB) Thought Process: Rumination Thought Content: positive for [place], positive for Circumstantial, positive for Evasive, positive for Suicidal Ideation (denies) and positive for Homicidal Ideation (denies) Depressive Symptoms: Increased Anxiety, Increased Irritability, Difficulty Sleeping and Thoughts of /Suicide (denies) Judgement: Good Data Data Completed and Pending Completed studies during hospitalization [Text1]: 04/02/24 04/04/24 22:01 07:53 WBC 6.1 RBC 4.73 Hgb 12.9 Hct 40.3 MCV 85.2 MCH 27.3 MCHC 32.0 RDW 14.1 Plt Count 315 MPV 9.7 Immature Gran % (Auto) 0.2 Neut % (Auto) 58.4 Lymph % (Auto) 29.0 [place] % (Auto) 8.6 Eos % (Auto) 3.3 Baso % (Auto) 0.5 Lymph # (Auto) 1.8 [place] # (Auto) 0.5 Eos # (Auto) 0.2 Baso # (Auto) 0.0 Abs Immat Gran (auto) 0.01 Absolute Neuts (auto) 3.6 Absolute Nucleated RBC 0.000 Nucleated RBC % (auto) 0.0 Sodium 139 139 Potassium 4.0 4.0 Chloride 109 H 109 H Carbon Dioxide 21 L 24 Anion Gap 13 10 L BUN 9 6 L Creatinine 0.78 0.72 Estim Creat Clear Calc 108.0 117.1 Estimated GFR > 60 > 60 Random Glucose 90 Fasting Glucose 86 Estimat Average Glucose 94 Hemoglobin A1c % 4.9 Calcium 10.2 9.1 D Magnesium 2.2 Total Bilirubin 0.2 0.6 AST 13 10 ALT 12 9 Alkaline Phosphatase 85 69 Total Protein 7.5 6.6 Albumin 4.4 3.9 Triglycerides 76 Cholesterol 174 LDL Cholesterol, Calc 123 H HDL Cholesterol 36 L Vitamin B12 368 Folate 8.4 TSH 1.80 Free T4 0.92 Urine Color Yellow Urine Appearance Cloudy Urine pH 7.0 Ur Specific [place] 1.020 Urine Protein Trace Urine Glucose (UA) Negative Urine Ketones Negative Urine Blood Negative Urine Nitrite Negative Ur Leukocyte Esterase Moderate (2+) H Urine RBC 0-2 Urine WBC 11-20 H Ur Squamous Epith Cells >20 Urine Bacteria 4+ Hyaline Casts 6-10 Urine Test NEGATIVE Urine Opiates Screen Not Detected Ur Buprenorphine Scrn Not Detected Ur Oxycodone Screen Not Detected Urine Methadone Screen Not Detected Urine Fentanyl Screen Not Detected Ur Barbiturates Screen Not Detected Ur Phencyclidine Scrn Not Detected Ur Amphetamines Screen Not Detected U Benzodiazepines Scrn Not Detected Urine Cocaine Screen Not Detected U Marijuana (THC) Screen Not Detected Ethyl Alcohol < 10 04/02/24 22:57 Urine clean catch - Clean Catch Midstream Urine Culture - Final DS: Summary Hospital Course Hospital Course: Admission to adult psychiatry for exacerbation of SI with reports of threats to suicide to her children. Admitted on a Section XIIB. Pt refused all interventions. 51A was filed. Pt denied any and all symptoms and focused her admission on allegations of violations of her rights in being admitted. Reported L ear pain which was assessed by hospitalist services. Family agreed pt needed treatment and believes she was diagnosed with schizophrenia in 2022. They report no suicide attempts, just threats to move away and leave the children with the extended family when she becomes overwhelmed and no HI or inability to care for herself due to psychosis. Pt denied SI/HI/AH/VH. There were no sx of psychosis and there are sx of anger and lability noted during her stay. She is discharged to [facility] appointment and will have [facility] and [facility] for ongoing support in out patient. Family/Pt were informed she may call/return at any time as needed. Status at Discharge Functional status at discharge: independent ambulation Overall status at discharge: patient is progressing back to baseline Time Spent with Patient Time attestation: Total time managing care of this patient today ____ minutes. Time spent: Less than 30 minutes Discharge Plan Discharge Anticipated Discharge Date/Time: 04/06/24 12:00 Patient Disposition: Home, Self-Care Discharge Diagnosis: Unspecified Psychosis Referrals: Jumana (DCF worker): [facility]) [Other] - 1 Week (51 A filed with department of children and families ([facility]) Patient should follow-up with [facility] after discharge regarding 51 A being filed and to engage with agency to identify supportive resources that they could offer her and family in community.) [facility]: [facility] [Other] - 1 Week (Mental Health Resources Patient may self present to [facility] Tuesday-Tuesday between 10 am-12 pm to be evaluated for outpatient services (therapy/psychiatry)) [facility]: [facility] [Other] - 1 Week (Mental Health Resources Patient may self present to [facility] Tuesday-Tuesday between 8 am-8 pm or Tuesday between 9 am-5 pm to be evaluated for outpatient services (therapy/psychiatry)) Discharge Medications: No Action amoxicillin-pot clavulanate 875-125 mg tablet 1 tab PO BID 7 Days Qty: 14 0RF ciprofloxacin-dexamethasone [Ciprodex] 0.3-0.1 % drops,suspension 4 drp otic (ears) BID 7 Days Qty: 7.5 0RF Discharge Orders: Discharge Order (Routine); Ordered 04/06/24 Ordered By: Alena Zee Diet: Advance to usual diet Activity on Discharge: As tolerated Stand Alone Forms: Patient Portal Discharge page, Community Support Print Language: Bulgarian Care Plan Goals: Mood and Behavioral Stabilization Health Concerns: Mood and Behavioral Stabilization Plan of Treatment: Samir refused all offered treatment. Refused medication, milieu group treatment, individual treatment, out patient referrals. 51A was filed with [facility]. They will follow up with her. Assessment: Expiration of Section XIIB. Samir refused all treatment and referrals. She denies SI/HI/AH/VH She denies all symptoms of distress Discharge Date/Time: 04/06/24 11:30
--- NOTE | 2024-04-06 17:43 | PM.EVENT ---
Documented by User: Alena Zee, VIVIEN 04/29/24 18:52 Event Note Date of Service: 04/29/24 Event Note: Call from daughter, Germaine Bain [phone]. Germaine and her grandmother (pt's mother) verbalized their concerns about pt discharging from the hospital. Pt called her mother last night they report and threatened to move from the area and leave the children with her mother if they did not cooperate with her requests. They believe she needs medications however she has refused for a long while along with refusal of treatment. She has a previous diagnosis of schizophrenia they believe. They report she will tell us she is OK, then go home and report feeling stressed and overwhelmed. Last year she took medications but stopped. They report symptoms are inconsistent and she needs motivation to accept treatment. They hope DCF involvement with provide this motivation. As we do not have a release to speak with family they were informed of this. They were informed that pt was welcome to return at any time, what the commitment criteria were for [facility] [place] with [place] 7 and community options for guardianship/Thomas. They were given tw contact information and may call with questions or for further assist after pt is discharged. They report pt has no history of suicide attempts and the majority of her symptoms are along the agitation/irritability/yelling/paranoia spectrum. Time Spent With Patient Time: Total time managing care of this patient today ____ minutes. Documented by User: Remington Javed MD 05/01/24 17:11 Event Note Date of Service: 05/01/24
== END 2024-04-06 11:30 | disposition home or self-care (01) | DRG 751 ==
LOC: HO.ED 04-03 01:21 → HO.PM5 04-03 12:14
PROVIDERS: Nurse Practitioner Family; Admitting Provider Clinical Nurse Specialist Psychiatric/Mental Health, Adult; Emergency Provider Emergency Medicine; Visit Provider Clinical Nurse Specialist Psychiatric/Mental Health, Adult
DX: F29 Unspecified psychosis not due to a substance or known physiological condition (principal); R45.851 Suicidal ideations; Z91.148 Patient's other noncompliance with medication regimen for other reason; H60.91 Unspecified otitis externa, right ear
CPT/HCPCS: 36415; 80053; 80061; 80307; 81001; 81025; 82607; 82746; 83036; 83735; 84439; 84443; 85025; 87086; 99284

== ENCOUNTER → 2024-04-03 12:04 | Outpatient (BNV) | payer OTHER, SELFPAY | PROVIDERS: Admitting Provider Clinical Nurse Specialist Psychiatric/Mental Health, Adult; Emergency Provider Emergency Medicine; Visit Provider Clinical Nurse Specialist Psychiatric/Mental Health, Adult | DX: F29 Unspecified psychosis not due to a substance or known physiological condition (principal); R45.851 Suicidal ideations | CPT/HCPCS: 99231; 99232; 99499 ==

== ENCOUNTER 2024-04-13 19:57 | Emergency (ER) | payer MEDICAID, SELFPAY ==
[2024-04-13 20:01] VITALS: BP 116/72; PULSE 70; RESP 18; TEMP 36.8; O2SAT 99; BMI 28.6
--- NOTE | 2024-04-13 20:02 | ED_ITS ---
HPI - Ear Problem General Chief complaint: Ear Problems Stated complaint: bilateral ear pain Time Seen by Provider: 04/13/24 20:05 Source: patient, RN notes reviewed and old records reviewed Mode of arrival: ambulatory Limitations: no limitations History of Present Illness ED Provider: YUNG SHAW PA-C HPI Narrative: 38-year-old female presents to the ED today for evaluation of bilateral ear pain (L>R) x1 week. Reports left ear pain extends into her head causing headache. Was seen at urgent care 2 days ago and was prescribed an ear drop. She has been using these drops without improvement. She can not recall the name of the medication. Denies hearing changes, drainage from the ear, fever/chills, jaw pain, ear swelling, neck pain, rashes. Denies FB. Related Data Previous Rx's ?Medication ?Instructions ?Recorded amoxicillin 875 mg-potassium 1 tab PO BID 7 days #14 tabs 04/13/24 clavulanate 125 mg tablet ciprofloxacin 0.3 %-dexamethasone 4 drp otic (ears) BID 7 days #7.5 04/13/24 0.1 % ear drops,suspension mL (Ciprodex) Allergies Allergy/AdvReac Type Severity Reaction Status Date / Time No Known Allergies Allergy Verified 04/13/24 20:07 Review of Systems Review of Systems: Constitutional: No fever, chills, fatigue, night sweats, weight changes ENT/Mouth: No hearing loss, nasal congestion, sinus pain, rhinorrhea, sore throat, +ear pain Eyes: No eye pain, swelling, redness, vision changes, discharge Cardio: No chest pain, palpitations, CHONG, orthopnea, peripheral edema Pulm: No SOB, cough, sputum, wheezing, dyspnea, hemoptysis GI: No nausea, vomiting, hematemesis, abdominal pain, diarrhea, constipation, hematochezia, melena : No irregular bleeding, dysuria, frequency, urgency, hesitancy, hematuria, flank pain, urinary flow changes, urinary incontinence or retention MSK: No back pain, neck pain, joint pain, myalgias Skin: No lesions, rashes Neuro: No weakness, numbness, paresthesias, LOC, dizziness, headache Psych: No anxiety/panic, depression, SI/HI, AH/VH All other systems reviewed and are negative. [facility] Past Medical History Attestation statement: The following information was validated with the patient. Source: old records reviewed and nursing notes reviewed Medical History Unspecified psychosis Social History Social History Household Members: Children Housing: Other Housing Other:: Long Term Do you presently have visiting nurse or other home services: No Patient Tobacco Use Status: Never used Tobacco e-Cigarette/Vaping Use: Never Used Substance Use Type: Marijuana Advance Directives: No Advance Directives Information Provided: No Do you have a plan to hurt others: No Plan service: No Sexual orientation: Straight/Heterosexual Physical Exam Vital Signs: Vital Signs: Last Vital Signs Temp 98.2 F 04/13/24 20:01 Pulse 70 04/13/24 20:01 Resp 18 04/13/24 20:01 BP 116/72 04/13/24 20:01 Pulse Ox 99 04/13/24 20:01 O2 Del Method Room Air 04/13/24 20:01 BMI result Body Mass Index 28.6 Vital signs stable, afebrile. Const: General: cooperative, healthy appearing, comfortable and no acute distress Orientation/consciousness: patient oriented x3 Limitations: no limitations HEENT: Other: + pain on manipulation of left pinna. No mastoid tenderness or protrusion of the auricle. Left EAC erythematous and edematous. No noted discharge. TM intact, erythematous. No effusion or bulging. + pain on manipulation of right pinna. N o mastoid tenderness or protrusion of the auricle. Right EAC erythematous and edematous. No noted discharge. TM intact, erythematous. No effusion or bulging. Head: Yes normal to inspection, Yes No palpable skull fracture present, Yes normocephalic and Yes atraumatic Ears: hearing grossly normal bilaterally Face and sinus: Yes normal facial exam and Yes sinuses nontender Throat: Yes posterior oropharynx normal Eyes: General: appearance normal, both eyes and all related structures Pupils: Equal, round and reactive pupils present Neck: Neck: Yes normal visual inspection and Yes no lymphadenopathy Resp: Effort & Inspection: normal respiratory effort and able to speak in complete sentences Auscultation: clear to auscultation bilaterally Cardio: Rate: regular rate Rhythm: regular rhythm Skin: General skin exam: no rashes or lesions noted Neuro: General: patient oriented x3 and gait normal Cranial nerves: Yes Equal, round and reactive pupils present Course Course Course Narrative: 2018-- Physical exam is consistent with bilateral otitis externa with suspected otitis media. I did discuss this with patient. Will send augmentin and Ciprodex ear drops to pharmacy for treatment. Advised to take tylenol/ motrin at home for pain/ discomfort. Patient has remained stable throughout ED visit today. Discussed worrisome signs and symptoms and when to return to the ED. All questions answered at this time. Patient is agreeable with disposition and stable for discharge. Medical Decision Making Medical Decision Making [facility] Narrative: 38-year-old female presents to the ED today for evaluation of bilateral ear pain (L>R) x1 week. Vital signs stable. Afebrile. She is nontoxic-appearing and in no acute distress. On exam, pain on manipulation of left pinna. No mastoid tenderness or protrusion of the auricle. Left EAC erythematous and edematous. No noted discharge. TM intact, erythematous. No effusion or bulging. pain on manipulation of right pinna. No mastoid tenderness or protrusion of the auricle. Right EAC erythematous and edematous. No noted discharge. TM intact, erythematous. No effusion or bulging. Exam nonfocal. PERRLA. skin w/d/i. no rashes. Differential diagnosis includes otitis media, otitis externa. Unlikely mastoiditis, malignant otitis externa. Plan for disposition. Differential Diagnosis Differential Diagnoses: The differential diagnosis associated with the presentation includes as above. Admission/Observation Not indicated External Record Review External record reviewed: Inpatient record Tests considered The following testing was considered but not selected: I considered obtaining imaging however no suspicion for deep tissue infection, not warranted at this time Prescription Management I considered prescription management with: Antibiotic (Ciprodex, Augmentin) Social Determinants Patient?s care significantly limited by Social Determinants of Health including: Other Social Determinant of Health Critical Care Time Critical Care Time Critical Care Time: No Discharge Plan Discharge Clinical Impression: Otitis externa of both ears, Otitis media Patient Disposition: Home, Self-Care Instructions: Otitis Externa (ED) Additional Instructions: You were noted to have an external ear infection of both of her ears. Treatment for this is with antibiotics. Ciprodex ear drops have been sent to your pharmacy. This is a combination antibiotic and steroid ear drop. Augmentin is an antibiotic that has been sent to the pharmacy for treatment. Ta ke this twice a day (every 12 hours) for 7 days to treat ear infection. Do not stop administering this early or skip any doses as this may cause infection to persist or worsen. On Augmentin, softer bowel movements are to be expected. Call your provider if you move your bowels more than 4 times a day, your bowel movements are almost all liquid, or you get a rash.? If they spike a fever at home, please alternate Tylenol and ibuprofen. Please follow up with immigration inspector. Return with new or worsening symptoms. In the case of an emergency call 911. Prescriptions: New amoxicillin-pot clavulanate 875-125 mg tablet 1 tab PO BID 7 Days Qty: 14 0RF ciprofloxacin-dexamethasone [Ciprodex] 0.3-0.1 % drops,suspension 4 drp otic (ears) BID 7 Days Qty: 7.5 0RF Interventions: ED Discharge Assessment Last Done: 04/13/24 20:15 Discharge Date/Time: 04/13/24 20:18 Print Language: Yoruba
[2024-04-13 20:15] VITALS: BP 116/72; PULSE 70; RESP 18; TEMP 36.8; O2SAT 99
== END 2024-04-13 20:18 | disposition home or self-care (01) ==
PROVIDERS: Emergency Provider Internal Medicine
DX: H60.93 Unspecified otitis externa, bilateral (principal); H66.93 Otitis media, unspecified, bilateral; H92.03 Otalgia, bilateral
CPT/HCPCS: 99282; 99283